=== PATIENT | female | born 1990 | race African-American/Black ===

== ENCOUNTER 2016-04-23 22:26 | Outpatient (CLI) | payer OTHER ==
[~2016-04-23] VITALS: Ht 152.4 cm; Wt 67.0 kg
[~2016-04-23 22:26] MED LIST: ABILIFY5 MG PO; BACTRIM,SEPT1 TABLET PO; BENTYL10 MG PO; Motrin PO; NATALCARE RX1 TABLET PO; PRENATAL TABLE1 EAC3 PO; PROCARDIA10 MG PO; Procardia PO; STRATTERA60 MG PO; TYLENOL ARTHRI650 MG PO; ULTRAM50 MG PO; ZOFRAN8 MG PO; ZOLOFT50 MG PO
[2016-04-23 22:56] VITALS: BP 132/71
[2016-04-23 23:46] VITALS: BP 123/76
[2016-04-23 23:59] LABS: EOSINOPHIL (%) 0.1 % (0-5); HEMATOCRIT 32.2 % (36.0-46.0); IMMATURE GRANULOCYTE (%) 0.4 % (0.0-0.7); IMMATURE GRANULOCYTE COUNT 0.3 K/uL; LYMPHOCYTE COUNT 0.4 K/uL (1.0-2.8); MCHC 32.9 G/DL (30.0-36.0); MCV 91.2 FL (83-99); MEAN PLAT.VOLUME 11.8 uM^3 (9.5-12.4); MONOCYTE (%) 4.9 % (3-12); MONOCYTE COUNT 0.4 K/uL (0-0.8); NEUTROPHIL (%) 88.5 % (45-76); NEUTROPHIL COUNT 6.5 K/uL (1.8-6.4); PLATELET COUNT 184 K/uL (156-360); RBC DIS.WIDTH-CV 12.4 % (11.8-14.6); RBC DIS.WIDTH-SD 40.1 % (39-53); RED BLOOD COUNT 3.53 M/uL (3.80-5.20); WHITE BLOOD COUNT 7.3 K/uL (4.1-10.2)
[2016-04-24] VITALS (13 sets, daily range): BP systolic 104–127; BP diastolic 50–77
[2016-04-24 00:09] LABS: CHLORIDE 109 mEq/L (99-109); POTASSIUM 3.5 mEq/L (3.7-5.4); SODIUM 138 mEq/L (136-147)
[2016-04-24 00:10] LABS: AMYLASE 93 IU/L (1-118)
[2016-04-24 00:11] LABS: GLUCOSE 74 mg/dL (70-99)
[2016-04-24 00:13] LABS: ANION GAP 10 MEQ/L (2-14); TOTAL BILIRUBIN 1.4 mg/dL (0.0-1.0)
[2016-04-24 00:15] LABS: ALKALINE PHOSPHATASE 277 IU/L (3-129); GFR ESTIMATE (CALCULATED) > 59 mL/min/
[2016-04-24 00:16] LABS: UREA NITROGEN (BUN) 8 mg/dL (9-23)
[2016-04-24 00:18] LABS: URIC ACID 6.3 mg/dL (3.1-9.2)
[2016-04-24 00:19] LABS: LIPASE 26 U/L (1.0-51.0)
[2016-04-24 01:01] LABS: LACTATE DEHYDROGENASE 167 IU/L (20-246)
[2016-04-24 01:45] LABS: UR CREATININE CONCENTRATION 84.6 MG/DL
[2016-04-24 11:15] LABS: AMPHETAMINES QUANT VALUE 0 NG/ML; BARBITUATES QUANT VALUE 0 NG/ML; BENZODIAZEPINES QUANT VALUE 0 NG/ML; BENZODIAZEPINES, URINE SCREEN Negative (200 ng/mL); OPIATES QUANTITATIVE VALUE 0 NG/ML; PHENCYCLIDINE QUANT VALUE 0 NG/ML
== END 2016-04-24 16:55 | disposition home or self-care (01) ==
LOC: LDRP-OP 22:26 → 2WEST 22:27 → LDRP-OP 06-12 21:28
PROVIDERS: Advanced Practice Midwife
DX: O47.1 False labor at or after 37 completed weeks of gestation (principal); O99.89 Other specified diseases and conditions complicating pregnancy, childbirth and the puerperium; Z3A.37 37 weeks gestation of pregnancy
CPT/HCPCS: 59025; 76705; 80053; 82150; 82570; 83615; 83690; 84156; 84550; 85025; 86850; 86900; 86901; G0378; J0595; J2405; J3105; J7120

== ENCOUNTER 2016-04-25 05:46 | Inpatient (IN) | payer OTHER ==
[~2016-04-25] VITALS: Ht 152.4 cm; Wt 66.8 kg
[2016-04-25] VITALS (21 sets, daily range): BP systolic 94–148; BP diastolic 52–86
[2016-04-25 07:34] LABS: EOSINOPHIL (%) 0.1 % (0-5); HEMATOCRIT 29.2 % (36.0-46.0); IMMATURE GRANULOCYTE (%) 0.2 % (0.0-0.7); LYMPHOCYTE COUNT 0.9 K/uL (1.0-2.8); MCH 30.7 PG (29.0-34.0); MCHC 33.6 G/DL (30.0-36.0); MCV 91.5 FL (83-99); MEAN PLAT.VOLUME 11.8 uM^3 (9.5-12.4); MONOCYTE (%) 4.8 % (3-12); MONOCYTE COUNT 0.7 K/uL (0-0.8); NEUTROPHIL (%) 87.9 % (45-76); NEUTROPHIL COUNT 11.8 K/uL (1.8-6.4); PLATELET COUNT 178 K/uL (156-360); RBC DIS.WIDTH-CV 12.8 % (11.8-14.6); RBC DIS.WIDTH-SD 42.9 % (39-53); RED BLOOD COUNT 3.19 M/uL (3.80-5.20)
[2016-04-25 07:35] LABS: WHITE BLOOD COUNT 13.4 K/uL (4.1-10.2)
[2016-04-26 06:39] LABS: EOSINOPHIL (%) 0.8 % (0-5); EOSINOPHIL COUNT 0.1 K/uL (0-0.3); HEMATOCRIT 26.2 % (36.0-46.0); IMMATURE GRANULOCYTE (%) 0.3 % (0.0-0.7); LYMPHOCYTE COUNT 2.1 K/uL (1.0-2.8); MCH 30.3 PG (29.0-34.0); MCHC 32.8 G/DL (30.0-36.0); MCV 92.3 FL (83-99); MONOCYTE (%) 8.8 % (3-12); NEUTROPHIL (%) 71.1 % (45-76); NEUTROPHIL COUNT 7.8 K/uL (1.8-6.4); PLATELET COUNT 177 K/uL (156-360); RBC DIS.WIDTH-CV 12.8 % (11.8-14.6); RBC DIS.WIDTH-SD 43.4 % (39-53); RED BLOOD COUNT 2.84 M/uL (3.80-5.20)
[2016-04-26 07:12] VITALS: BP 108/78
== END 2016-04-26 14:37 | disposition home or self-care (01) | DRG 775 ==
LOC: LDRP-OP 05:46 → 2WEST 05:47 → LDRP-OP 06-12 22:25
PROVIDERS: Advanced Practice Midwife
PROC: 0HQ9XZZ Repair Perineum Skin, External Approach (ICD-10-PCS; principal; 2016-04-25)
PROC: 00HU33Z Insertion of Infusion Device into Spinal Canal, Percutaneous Approach (ICD-10-PCS; principal; 2016-04-25)
PROC: 3E0R3CZ (ICD-10-PCS; principal; 2016-04-25)
PROC: 10E0XZZ Delivery of Products of Conception, External Approach (ICD-10-PCS; principal; 2016-04-25)
DX: O99.324 Drug use complicating childbirth (principal); O99.334 Smoking (tobacco) complicating childbirth; F12.10 Cannabis abuse, uncomplicated; O99.344 Other mental disorders complicating childbirth; F31.9 Bipolar disorder, unspecified; O70.0 First degree perineal laceration during delivery; F17.210 Nicotine dependence, cigarettes, uncomplicated; O99.02 Anemia complicating childbirth; Z37.0 Single live birth; Z3A.37 37 weeks gestation of pregnancy
CPT/HCPCS: 59025; 76705; 80053; 82150; 82570; 83615; 83690; 84156; 84550; 85025; 86850; 86900; 86901; C1755; G0378; J0595; J2405; J3105; J7120

== ENCOUNTER 2017-04-06 20:51 | Emergency (ER) | payer OTHER ==
[~2017-04-06] VITALS: Ht 152.4 cm; Wt 64.5 kg
[2017-04-06] MEDS ORDERED: INDOCIN50 MG PO (23:50)
[2017-04-06] MEDS ORDERED: AUGMENTIN875 MG PO (23:50)
[2017-04-07 00:21] VITALS: BP 139/90
== END 2017-04-07 00:23 | disposition home or self-care (01) ==
LOC: EME 20:51 → RME 20:51
DX: K08.89 Other specified disorders of teeth and supporting structures (principal)
CPT/HCPCS: 99281; 99284; J1885